=== PATIENT | male | born 1990 | race Two or more races ===

== ENCOUNTER 2018-04-01 17:54 | Emergency (ER) | payer SELFPAY ==
[~2018-04-01] VITALS: Ht 165.1 cm; Wt 102.1 kg
--- NOTE | 2018-04-01 18:58 | NUR ---
MSE COMPLETED, PT D/C'D HOME, ACI/RX X 2 GIVEN. PT AMBULATED W/O DIFF/TOOK ALL BELONGINGS.
[2018-04-01 19:07] VITALS: BP 122/84
== END 2018-04-01 19:09 | disposition home or self-care (01) ==
LOC: ER 18:05
DX: L03.012 Cellulitis of left finger (principal)
CPT/HCPCS: 99283; A4663